=== PATIENT | female | born 1960 | race Caucasian/White ===

== ENCOUNTER → 2020-03-28 07:30 | Outpatient (CLI) | payer BC, SELFPAY ==
[2020-03-29 00:19] LABS: SARS-CoV-2 RNA PCR Negative
== END ==
PROVIDERS: PCP Family Medicine; Visit Provider Physician Assistant
DX: Z20.822 Contact with and (suspected) exposure to COVID-19 (principal); R09.81 Nasal congestion
CPT/HCPCS: C9803; U0003; U0005

== ENCOUNTER 2020-04-17 13:54 | Outpatient (CLI) | payer BC, SELFPAY ==
--- NOTE | ~2020-04-17 | CT_ITS ---
EXAMINATION: CT brain wo con EXAM DATE: 04/17/2020 14:28 INDICATION: R51.9 - Headache, unspecified . TECHNIQUE: Spiral CT of the head was performed without contrast. Axial, coronal and sagittal images were reviewed. The dose-length product (DLP) for this examination was 605.33 mGy-cm. The exposure w as tailored according to patient size, and iterative reconstruction (ASIR) was used as additional dos e reduction technique. Comparison is made to prior examination from 08/10/2006. FINDINGS: There is no acute intraparenchymal hemorrhage. No evidence of intraparenchymal brain mass lesion. No evidence of acute infarction. There is no mass effect or midline shift. The ventricles are normal in size. There are no extra-axial collections. There are no acute calvarial fractures. T he orbits are unremarkable. Soft tissue is unremarkable. The visualized sinuses and mastoid air valencia ls are well aerated. IMPRESSION: 1. Unremarkable head CT examination. Reviewed, dictated and finalized at location B. ASSISTANT
== END 2020-04-17 13:55 | disposition home or self-care (01) ==
PROVIDERS: PCP Family Medicine; Visit Provider Family Medicine
DX: H53.50 Unspecified color vision deficiencies (principal); R51.9 Headache, unspecified; I10 Essential (primary) hypertension; R42 Dizziness and giddiness
CPT/HCPCS: 70450

== ENCOUNTER 2020-05-27 09:46 | Outpatient (CLI) | payer BC, SELFPAY | END 2020-05-27 09:47 | disposition home or self-care (01) | PROVIDERS: PCP Family Medicine; Visit Provider Otolaryngology | DX: H91.93 Unspecified hearing loss, bilateral (principal); H93.13 Tinnitus, bilateral | CPT/HCPCS: 92557; 92567 ==

== ENCOUNTER → 2020-10-28 01:24 | Outpatient (CLI) | payer BC, SELFPAY ==
[2020-10-28 20:24] LABS: SARS-CoV-2 RNA PCR Negative
== END ==
PROVIDERS: PCP Family Medicine; Visit Provider Nurse Practitioner Family
DX: Z20.822 Contact with and (suspected) exposure to COVID-19 (principal); R68.89 Other general symptoms and signs
CPT/HCPCS: C9803; U0003; U0005

== ENCOUNTER → 2021-03-10 10:07 | Outpatient (CLI) | payer BC, SELFPAY ==
[2021-03-10 13:49] LABS: Influenza A QL RT-PCR Negative (Negative); Influenza B QL RT-PCR Negative (Negative); SARS-CoV-2 RNA PCR Negative
== END ==
PROVIDERS: PCP Family Medicine; Visit Provider Physician Assistant
DX: R05.9 Cough, unspecified (principal); R09.89 Other specified symptoms and signs involving the circulatory and respiratory systems; Z20.822 Contact with and (suspected) exposure to COVID-19
CPT/HCPCS: 87502; C9803; U0003; U0005

== ENCOUNTER 2023-06-15 07:25 | Emergency (ER) | payer BC, SELFPAY ==
[2023-06-15] VITALS (21 sets, daily range): BP systolic 132–174; BP diastolic 69–86; PULSE 63–77; RESP 9–18; TEMP 36.6; O2SAT 96–100
--- NOTE | ~2023-06-15 | CT_ITS ---
CT scan of the Neck Technique: 2.5 mm axial scans were obtained through the neck after intravenous administration of 75 c c Omnipaque 350. Coronal and sagittal reconstructions of the neck were obtained. Dose reduction techn ique was used on this scan by utilizing automated exposure control and iterative reconstruction techn ique. The dose-length product (DLP) was 343.43 mGy-cm. Clinical History: Pain and swelling Findings: There is no evidence of any significant cervical lymphadenopathy. Several small, nonenlarged jugulo- digastric and posterior cervical lymph nodes are noted bilaterally. Parapharyngeal spaces appear norm al bilaterally. The parotid and submandibular glands appear normal. The pharyngeal mucosal spaces appear normal. No soft tissue masses are seen in the neck. The thyroid gland appears normal. Images of the lung apices reveal no abnormalities. Impression: No significant abnormalities noted. Reviewed, dictated and finalized at [facility]. Impression: No significant abnormalities noted.
--- NOTE | ~2023-06-15 | XR_ITS ---
Clinical Indication: Chest pain PA and lateral views of the chest: Comparison: 08/25/2012 Findings: The lungs are clear, without evidence of focal consolidation or pleural effusion. Cardiome diastinal silhouette is within normal limits. Bones and soft tissues are unremarkable. Impression: Normal chest. Reviewed, dictated and finalized at location . Impression: Normal chest.
--- NOTE | 2023-06-15 07:46 | ECG_ITS ---
SEE SCANNED COPY FOR CONFIRMED REPORT MTDD
[2023-06-15] MEDS: ASPIRIN 81 MG CHEWABLE TABLET 324 MG PO (07:59)
[2023-06-15 08:07] LABS: Basophils Absolute Auto 0.1 K/mm3 (0.0-0.1); Basophils Percent Auto 0.6 % (0.2-1.2); Eosinophils Absolute Auto 0.1 K/mm3 (0-0.3); Hematocrit 44.6 % (37.0-47.0); Hemoglobin 14.6 g/dL (12.0-15.0); Immature Granulocyte Absolute 0.04 K/mm3 (0.00-0.031); Immature Granulocyte Percent A 0.3 % (0-0.5); Lymphocytes Absolute Auto 3.47 K/mm3 (0.9-3.2); Lymphocytes Percent Auto 28.6 % (18.3-44.2); Mean Corpuscular HGB Conc 32.7 g/dl (32-36); Mean Corpuscular Hemoglobin 30.2 pg (26-34); Mean Corpuscular Volume 92.1 fl (80-100); Mean Platelet Volume 10.9 fl (7.4-10.4); Monocytes Percent Auto 8.4 % (2.6-8.5); Neutrophils Absolute Auto 7.4 K/mm3 (1.3-6.7); Neutrophils Percent Auto 61.1 % (45.5-73.1); Platelet Count Result 300 k/mm3 (150-375); Red Blood Count 4.84 M/mm3 (4.2-5.4); Red Cell Distribution Width 15.4 % (11.5-14.5); White Blood Count 12.2 K/mm3 (4.5-10.0)
--- NOTE | 2023-06-15 08:09 | ED.CHESTPAIN ---
HPI - Chest Pain General Chief Complaint: Neck Pain/Injury Stated Complaint: neck pain Time Seen by Provider: 06/15/23 08:07 Source: patient Mode of arrival: ambulatory Limitations: no limitations History of Present Illness HPI narrative: Patient presents with complaint of chest pain radiating into her left neck and jaw. She states pain began yesterday upon awakening but had improved throughout the day by the evening. Symptoms however started again this morning. She denies any sore throat. No lower extremity edema. She describes the pain as a constriction 6/10 in severity. She does experience pain with inspiration. She is a smoker. History of hypertension hyperlipidemia for which she is on medications. She feels like she has a tightness in her neck but denies any shortness of breath/difficulty breathing. No cardiac or respiratory history and has never seen a party bus driver or had cardiac workup/stress testing. Denies family history. Denies a cough at present. She did have a cough approximately 1 week ago that resolved. Related Data Allergies Allergy/AdvReac Type Severity Reaction Status Date / Time No Known Allergies Allergy Verified 06/15/23 07:26 [facility] Past Medical History Medical History Chronic cholecystitis Family history of colon cancer HTN (hypertension) Hyperlipemia Surgical History Surgical History (Updated 03/06/23 @ 15:02 by Mario Alberto Mcintyre PA-C) History of bladder suspension procedure S/P laparoscopic cholecystectomy 12/30/22 Family History Family History Father Carcinoma of colon Malignant neoplasm of prostate Grandparent Carcinoma of colon Family history of pancreatic cancer Family history of heart disease in male family member before age 55 Social History Social History Social History: Smoking packs per day: 1 Smoking cigarettes per day: 20.0 Years smoked: 40 Smoking pack-years: 40.00 Smoking status: Current every day smoker Tobacco type: cigarettes Second hand tobacco smoke exposure: No Smoking end date: 01/21/20 Alcohol intake: current Drinks per week: 10 Substance use: never Substance use type: does not use Living arrangements: with family Occupation/Education: occupation Gender identity (if verbalized by the patient): Female Sexual Orientation (if Verbalized by the Patient): Straight or Heterosexual Exam Narrative: GENERAL: Well-appearing, well-nourished, and in no acute distress. HEAD: Normocephalic, atraumatic. EYES: Non injected, non icteric ENT: Nares clear, no rhinorrhea or epistaxis. Posterior oropharynx unremarkable. NECK: Supple. No fullness. CHEST: Clear to auscultation. No respiratory distress. Speaking in full sentences. HEART: Regular rate and rhythm. ABDOMEN: Soft, nondistended. EXTREMITIES: Normal range of motion. No edema. SKIN: Warm, dry, no rash. NEURO: No focal deficits. Alert and oriented x3. PSYCH: Normal mood and affect. Course Vital Signs Vital signs: Vital Signs Temperature 97.8 F 06/15/23 07:39 Pulse Rate 67 06/15/23 07:39 Respiratory Rate 12 06/15/23 07:39 Blood Pressure 174/86 H 06/15/23 07:39 Pulse Oximetry 100 06/15/23 07:39 Oxygen Delivery Room Air 06/15/23 07:39 Temperature 97.8 F 06/15/23 07:39 Pulse Rate 64 06/15/23 11:06 Respiratory Rate 10 L 06/15/23 11:06 Blood Pressure 132/84 06/15/23 11:06 Pulse Oximetry 98 06/15/23 11:06 Oxygen Delivery Room Air 06/15/23 07:39 MDM - Chest Pain MDM Narrative Medical decision making narrative: Patient presents initially complaining of neck pain. In discussion further, she states that it is chest pain that radiates into her left neck and jaw. Pain started yesterday and had improved but then recurred today. In the emergency
[2023-06-15 08:16] LABS: INR 0.9
[2023-06-15 08:17] LABS: Partial Thromboplastin Time 29.9 Seconds (22.3-36.8)
[2023-06-15 08:18] LABS: Alanine Aminotransferase 18 U/L (6-35); Albumin Level 4.5 g/dL (3.5-5.1); Alkaline Phosphatase 73 U/L (38-126); Anion Gap 5 mmol/L (4-12); Aspartate Amino Transferase 25 U/L (14-36); Bilirubin,Total 0.5 mg/dL (0.2-1.3); Blood Urea Nitrogen 14 mg/dL (7-17); Calcium 9.6 mg/dL (8.4-10.2); Carbon Dioxide 26 mmol/L (22-30); Chloride 105 mmol/L (98-107); Estimated CRCL calculation 65 ml/min; Estimated Glomerular Filt Rate > 60; Glucose 104 mg/dL (65-110); Lipase 155 U/L (23-300); Potassium 4.6 mmol/L (3.4-5.0); Sodium 136 mmol/L (137-145)
[2023-06-15 08:28] LABS: Troponin I < 0.012 ng/mL (0.000-0.034)
[2023-06-15] MEDS: BELLADONNA ALK/PHENOB ELIX 10 ML, MAG HYDROX/ALUMINUM HYD/SIMETH 30 ML, LIDOCAINE HCL 2... PO (08:31)
[2023-06-15] MEDS: ACETAMINOPHEN 500 MG TABLET 1000 MG PO (08:31)
[2023-06-15 08:32] LABS: D Dimer < 0.27 ug/mL (<0.48)
[2023-06-15 08:54] LABS: NT Pro B Type Natriuretic Pept 239 pg/mL (19.9-100)
--- NOTE | 2023-06-15 10:25 | ECG_ITS ---
SEE SCANNED COPY FOR CONFIRMED REPORT MTDD
[2023-06-15 11:14] LABS: Troponin I < 0.012 ng/mL (0.000-0.034)
== END 2023-06-15 11:35 | disposition home or self-care (01) ==
PROVIDERS: Emergency Provider Student in an Organized Health Care Education/Training Program; PCP Family Medicine
DX: R07.9 Chest pain, unspecified (principal); D72.829 Elevated white blood cell count, unspecified; I10 Essential (primary) hypertension; E78.5 Hyperlipidemia, unspecified; Z90.49 Acquired absence of other specified parts of digestive tract; Z87.891 Personal history of nicotine dependence; R94.31 Abnormal electrocardiogram [ECG] [EKG]
CPT/HCPCS: 36415; 70491; 71046; 80053; 83690; 83880; 84484; 85025; 85380; 85610; 85730; 93005; 99284; A9270; Q9967

== ENCOUNTER 2023-12-27 11:00 | Outpatient (CLI) | payer BC, SELFPAY ==
--- NOTE | ~2023-12-27 | CT_ITS ---
CT Scan of the Chest without Contrast: Clinical Indication: Lung congestion, nicotine dependence Technique: Contiguous sections were acquired throughout the chest without intravenous contrast. Dose reduction technique was used on this scan by utilizing automated exposure control and iterative recon struction technique. The dose-length product (DLP) was 62.10 mGy-cm. Findings: There is no evidence of any significant mediastinal, hilar or axillary lymphadenopathy. The mediastin al soft tissues appear normal. There is no evidence of pleural or pericardial effusion. The lungs are clear. No pulmonary nodules or infiltrates are noted. Images through the upper abdomen reveal no abnormalities. Impression: Lung RADS 1: Negative. 12 month follow-up screening CT advised. Reviewed, dictated and finalized at location . 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 12 month follow-up screening CT advised.
== END 2023-12-27 11:01 | disposition home or self-care (01) ==
PROVIDERS: PCP Family Medicine; Visit Provider Family Medicine
DX: Z12.2 Encounter for screening for malignant neoplasm of respiratory organs (principal); Z87.891 Personal history of nicotine dependence
CPT/HCPCS: 71271

== ENCOUNTER 2024-03-19 00:15 | Day surgery (SDC) | payer BC, SELFPAY ==
[2024-03-08 14:24] VITALS: BMI 22.1
--- OUTSIDE RECORDS SUMMARY | 2024-03-19 00:18 | XMS_ITS | Clinical Summary ---
Author Organization [facility] [employer] Address [address] [place] [address] Care Team Providers Care Edge Stripper Name Role Phone Jono Krishna MD Primary Care Provider [phone] Source Comments [facility] [employer],non-owned Affiliates and Associated Physician Practices is amultiple site organization consisting of ambulatory clinics and hospital sitesin [place], [place], [place] and [place]. This disclosure is being madepursuant to the Care Everywhere program and may not contain all information available regarding this patient. Last updated 17.[facility] Allergies No known active allergies Medications * Be aware that medications may not be up to date on this document. Alwaysverify current medications with the patient. Medication Sig Dispensed Refills Start Date End Date Status amitriptyline (ELAVIL) 25 MG tablet Take 25 mg by mouth at bedtime 05/30/2020 Active Probiotic Product (ACIDOPHILUS/GOAT MILK) CAPS Take 1 capsule by mouth once daily Active estradiol (ESTRACE) 1 MG tablet Take 1 mg by mouth once daily 06/11/2020 Active dicyclomine (BENTYL) 10 MG capsule Take 10 mg by mouth 4 times daily 06/05/2019 Active amLODIPine (NORVASC) 5 MG tablet Take 5 mg by mouth once daily 04/29/2020 Active Active Problems Problem Noted Date Diagnosed Date Carpal tunnel syndrome 09/14/2017 Numbness of right hand 08/10/2017 Hematuria 08/11/2016 Adenomatous colon polyp 03/17/2015 Ischemic colitis 03/17/2015 Renal cyst 12/22/2014 Irritable bowel syndrome with diarrhea 4 Immunizations Name Administration Dates Next Due INFLUENZA VACCINE, TRIV. (AF LURIA, FLUZONE TRIVALENT; 6MO+) (IIV3) 12/19/2014 INFLUENZA VACCINE 12/14/2018, 8,12/06/2016, 016,11/21/2013 TDAP (7yrs+) 10/29/2018 Social History Tobacco Use Types Packs/Day Years Used Date Smoking Tobacco: Every Day Cigarettes Smokeless Tobacco: Never Alcohol Use Standard Drinks/Week Comments Yes 0 (1 standard drink = 0.6 oz pur e alcohol) Sex and Gender Information Value Date Recorded Sex Assigned at Not on file Gender Identity Not on file Sexual Orientation Not on file Last Filed Vital Signs Vital Sign Reading Time Taken Comments Blood Pressure 149/74 06/18/2020 1:21 PM CDT Pulse 92 06/18/2020 1:21 PM CDT Temperature 36.7 ??C (98.1 ??F) 06/18/2020 1:21 PM CD T Respiratory Rate - - Oxygen Saturation - - Inhaled Oxygen Concentration - - Weight 59 kg (130 lb) 06/18/2020 1:21 PM CDT Height 157.5 cm (5' 2 ) 06/18/2020 1:21 PM CDT Body Mass Index 23.78 06/18/2020 1:21 PM CDT Plan of Treatment Health Maintenance Due Date Last Done Comments COLOGUARD (AGES 45-75) - COLON CA SCREENING 1959 COLON MONITORING 1959 COLONOSCOPY - COLON CA SCREENING 1959 CT COLONOGRAPHY - COLON CA SCREENING 1959 Colorectal Cancer Screening 1959 FIT - COLON CA SCREENING 1959 FLEX SIG - COLON CA SCREENING 1959 LIPID TESTING 1959 PAP SMEAR 1959 HIV SCREENING 12/06/1974 HEPATITIS C SCREENING 12/02/1977 PNEUMOCOCCAL VACCINE 50+ (1 of 2 - PCV) 12/06/1978 PNEUMOCOCCAL VACCINE (1 of 2 - PCV) 12/06/1978 ZOSTER VACCINE (1 of 2) 12/06/2009 MAMMOGRAM 02/23/2022 02/24/2020, 02/16/2017 COVID-19 VACCINE ( - season) 2023 INFLUENZA VACCINE (#1) 2023 9, 12/20/2017, 12/06/2016, Additional history exists DEPRESSION SCREENING 02/21/2024 DTAP/TDAP/TD VACCINES (2 - Td or Tdap) 10/29/2028 10/29/2018 Respiratory Syncytial Virus (RSV) Vaccine Pt: or over 60 yrs (1 - 1-dose 75+ series) 12/06/2034 HEPATITIS B VACCINE Aged Out No longe r eligible based on patient's age to complete this topic HIB VACCINE Aged Out No longer eligi ble based on patient's age to complete this topic HPV VACCINE Aged Out No longer eligi ble based on patient's age to complete this topic MENINGOCOCCAL (Group B) VACCINE Aged Out No longer eligible based on patient's age to complete this topic MENINGOCOCCAL VACCINE Aged Out No boom clemencia eligible based on patient's age to complete this topic Care Teams Edge Stripper Relationship Specialty Start Date End Date Jono Krishna MD [address] [place] [address] PCP - General 06/10/20
--- OUTSIDE RECORDS SUMMARY | 2024-03-19 00:18 | XMS_ITS | Clinical Summary ---
Author Organization [facility] Address [address] [place] [address] Phone Care Team Providers Care Film Casting Operator Name Role Phone Gloria Huffman APRN, AUTOMOTIVE ARTIST Unavailable [phone] Jono Krishna MD Primary Care Provider Donal Pan MD Unavailable Jennifer Ca APRN, AUTOMOTIVE ARTIST Unavailable Allergies No known active allergies Medications dicyclomine (BENTYL) 10 MG CapsuleIndicati ons:Irritable bowel syndrome with diarrhea,Adenom atous colon polyp,Diverticu losis of large intestine without hemorrhage Take 10 mg by mouth daily as needed. 5 5 Active Probiotic Product (PROBIOTIC DAILY PO)Indications: Ischemic colitis (HCC),Irritable bowel syndrome with diarrhea,Adenom atous colon polyp,Diverticu losis of large intestine without hemorrhage Take by mouth. Acti ve FIBER SELECT GUMMIES PO Take 1 Tablet by mouth daily. Active Lactobacillus Rhamnosus, GG, (CULTURELLE PO) Take 1 Tab by mouth daily. Active estradiol (ESTRACE) 1 MG Tablet Take 1 mg by mouth daily. 4 9 Active LOSARTAN POTASSIUM PO Take 75 mg by mouth every morning. 3 Active atorvastatin (LIPITOR) 40 MG Tablet daily. Active pantoprazole (PROTONIX) 40 MG Tablet Delayed ResponseIndicat ions:Gastroesop hageal reflux disease, unspecified whether esophagitis present Take 1 tablet by mouth once daily 30 Tablet 3 Active famotidine (PEPCID) 20 MG Tablet Take 20 mg by mouth daily. Active acetaminophen (TYLENOL) 325 MG Tablet Take 1 Tablet by mouth every 6 hours as needed for Fever (for temperature greater than 100.4 F.). Do not exceed 4000 mg of acetaminophen in 24 hour from all sources. 3 Active Additional Information Patient not taking.Reported on 01/10/2023 oxyCODONE (ROXICODONE) 5 MG TabletIndicatio ns:Sludge in gallbladder Take 1 Tablet by mouth every 4 hours as needed for Severe pain. 10 Tablet 3 Active Additional Information Patient not taking.Reported on 01/10/2023 Active Problems Problem Noted Date Diagnosed Date Sludge in gallbladder 12/30/2022 Adenomatous colon polyp 03/17/2015 Irritable bowel syndrome with diarrhea 6 Ischemic colitis 03/17/2015 Immunizations Immunization Administration Dates Next Due Influenza Vaccine greater than 3 yrs 12/19/2014 Family History Medical History Relation Name Comments Thyroid Disease Brother 1 No Known Problems Brother 2 No Known Problems Daughter Cancer Father esophagus Colon Cancer Father 62 Prostate Cancer Father Stomach Cancer Father Cancer Maternal Grandfather Colon Cancer Maternal Grandfather Heart Disease Maternal Grandfather No Known Problems Maternal Grandmother Hypertension Mother Breast Cancer Other 1 pat. cousin Cancer Other 1 pat. cousin Breast Cancer Other 2 pat. cousin Cancer Other 2 pat. cousin Breast Cancer Paternal Cousin Cancer Paternal Cousin Cancer Paternal Grandfather Prostate Cancer Paternal Grandfather Cancer Paternal Grandmother pancere atic Colon Cancer Paternal Grandmother 60's Leukemia/Lymphoma Paternal Grandmother Cancer Sister Leukemia/Lymphoma Sister Hodgkins L ymphoma Skin Cancer Sister No Known Problems Son Relation Name Status Comments Brother 1 Alive Brother 2 Alive Daughter Alive Father Maternal Grandfather Maternal Grandmother Mother Alive Other 1 pat. cousin Other 2 pat. cousin Paternal Cousin Alive Paternal Grandfather Paternal Grandmother Sister Alive Son Alive Social History Tobacco Use Types Packs/Day Years Used Date Smoking Tobacco: Every Day Cigarettes 1 50.1 Started: 1974 Smokeless Tobacco: Never Tobacco Cessation:Ready to Q uit: Not Asked; Counseling Given: Not Answered Alcohol Use Standard Drinks/Week Comments Yes 2 (1 standard drink = 0.6 oz pur e alcohol) Sexually Active Control Partners Comments Yes Male Comments No Sex and Gender Information Value Date Recorded Sex Assigned at Not on file Legal Sex Female 9:06 PM CDT Gender Identity Not on file Sexual Orientation Not on file 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 Not on file Not on file Not on file Last Filed Vital Signs Vital Sign Reading Time Taken Comments Blood Pressure 140/86 01/10/2023 9:25 AM ENGINE WIPER Pulse 71 01/10/2023 9:25 AM ENGINE WIPER Temperature 35.8 ??C (96.5 ??F) 01/10/2023 9:25 AM CS T Respiratory Rate 16 01/10/2023 9:25 AM ENGINE WIPER Oxygen Saturation 99% 01/10/2023 9:25 AM ENGINE WIPER Inhaled Oxygen Concentration - - Weight 55.3 kg (122 lb) 01/10/2023 9:25 AM ENGINE WIPER Height 157.5 cm (5' 2 ) 01/10/2023 9:25 AM ENGINE WIPER Body Mass Index 22.31 01/10/2023 9:25 AM ENGINE WIPER Plan of Treatment Health Maintenance Due Date Last Done Comments Hepatitis C Virus (HCV) Screening 1960 Cologuard 12/06/2009 Immunochemical Fecal Occult Blood 12/06/2009 Lung Cancer Screening 12/06/2009 Influenza Immunization (#1) 10/22/202311/21, 12/15/2021, 12/11/2020, Additional history exists SARS-COV-2 Immunization ( season) 2023 12/13/2022, 12/15/2021, 01/22/2021, Additional history exists Mammogram 05/09/2025 05/10/2023, 02/0 10/2022, 03/23/2021, Additional history exists Colonoscopy 07/10/2028 07/10/2018 Colorectal Cancer Screening 07/10/2028 07/10/2018 DTaP/Tdap/Td Immunization Discontinued 10/29/2018 TdaP Immunization Completed 10/29/2018 Zoster Immunization Completed 02/12/2020, 0 Pneumococcal Immunization (50+ years) Completed 02/26/2023 Pneumococcal Immunization Combined Discontinued 02/26/2023 Respiratory Syncytial Virus (RSV) Immunization (Adult) Completed 02/26/2023 Hepatitis B Immunization Aged Out No longer eligible based on patient's age to complete this topic Meningococcal Immunization (ACWY) Aged Out No longer eligible based on patient's age to complete this topic Rotavirus Immunization Aged Out No lo nger eligible based on patient's age to complete this topic Procedures Procedure Name Priority Date/Time Associated Diagnosis Comments NAOMY SCREENING BILATERAL DIGITAL W CAD W ANA Routine 05/10/2023 7:21 AM CDT Visit for screening mammogram from Last 3 Months or Most Recently Relevant to Health Maintenance Results * NAOMY SCREENING BILATERAL DIGITAL W CAD W ANA (05/10/2023 7:21 AM CDT) Anatomical Region Laterality Modality breast Bilateral Mammography 05/10/2023 7:46 AM CDT Narrative 05/10/2023 10:30 AM CDT - NAOMY SCREENING BILATERAL DIGITAL W CAD W ANA BILATERAL DIGITAL SCREENING MAMMOGRAM 3D/2D WITH CAD WITH MEDIOLATERAL OBLIQUE CRANIOCAUDAL: 05/10/2023 The study was acquired using digital technology and interpreted from soft copy. Current study was also evaluated with ICAD version 7.2. 2D digital mammographic views, as well as 3D digital tomosynthesis were performed in the CC and MLO projections. ?? CLINICAL: Routine screening. Patient has no complaints. No personal history of cancer. Three paternal cousins had breast cancer. ?? COMPARISONS: Comparison is made to exams dated: ??03/23/2021, 03/31/2022, and 02/24/2020 [facility]. ?? BREAST TISSUE:The tissue of both breasts is heterogeneously dense. This may lower the sensitivity of mammography. ?? FINDINGS: There are benign calcifications in both breasts. ?? No significant masses, calcifications, or other findings are seen in either breast. ?? There has been no significant interval change. IMPRESSION: BI-RAD 2 BENIGN There is no mammographic evidence of malignancy. A 1 year screening mammogram is recommended. ?? A letter will be sent to the patient with these results. The patient will be entered into a reminder system with a target due date of 1 year for her next screening exam. Electronically signed by: Bronson Lisa M.D. ? tuyet/sharmaine:05/10/2023 10:05:23 ?? Grinder Outside Diameter(s): Magali ?? RT Sabas(R)(M), [facility] letter sent: Normal Exam ?? Reading location: WHITE BI-RADS: 2 Benign Procedure Note Bronson Lisa MD - 05/10/2023 - NAOMY SCREENING BILATERAL DIGITAL W CAD W ANA BILATERAL DIGITAL SCREENING MAMMOGRAM 3D/2D WITH CAD WITH MEDIOLATERAL OBLIQUE CRANIOCAUDAL: 05/10/2023 The study was acquired using digital technology and interpreted from soft copy. Current study was also evaluated with LoSoD version 7.2. 2D digital mammographic views, as well as 3D digital tomosynthesis were performed in the CC and MLO projections. CLINICAL: Routine screening. Patient has no complaints. No personal history of cancer. Three paternal cousins had breast cancer. COMPARISONS: Comparison is made to exams dated: 03/23/2021, 03/31/2022, and 02/24/2020 [facility]. BREAST TISSUE:The tissue of both breasts is heterogeneously dense. This may lower the sensitivity of mammography. FINDINGS: There are benign calcifications in both breasts. No significant masses, calcifications, or other findings are seen in either breast. There has been no significant interval change. IMPRESSION: BI-RAD 2 BENIGN There is no mammographic evidence of malignancy. A 1 year screening mammogram is recommended. A letter will be sent to the patient with these results. The patient will be entered into a reminder system with a target due date of 1 year for her next screening exam. Electronically signed by: Bronson benz/sharmaine:05/10/2023 10:05:23 Grinder Outside Diameter(s): RT Adele(R)(M), [facility] letter sent: Normal Exam Reading location: WHITE BI-RADS: 2 Benign Jono Krishna MD IMG MAMMO ORDERABLES Fi nal Result from Last 3 Months or Most Recently Relevant to Health Maintenance Insurance [facility] Care Teams Film Casting Operator Relationship Specialty Start Date End Date Jono Krishna MD [address] [place] [address] PCP - General Family Medicine 02/24/20 Gloria Huffman APRN, AUTOMOTIVE ARTIST Nurse Practitioner Advanced Practice Nurse 09/17/15 Donal Pan MD [address] [address] Consulting Physician Colon and Rectal Surgery 12/08/22 Jennifer Ca APRN, AUTOMOTIVE ARTIST [address] [place] [address] Nurse Practitioner Advanced Practice Nurse 08/31/22
--- OUTSIDE RECORDS SUMMARY | 2024-03-19 00:18 | XMS_ITS | Data Portability ---
[facility] Organization [facility] Address [address] [place] [address] Care Team Providers Care Shut Off Worker Name Role Phone DONITA HOWARD Primary Care Provider [phone] Assessment Encounter Date Assessment Date Assessment LastModified by Organization Details LastModified Time 01/26/2018 01/26/2018 1. Counseled regarding prevention of STD's , condom use 2. Pelvic and mammogram order not needed. 3. Advised avoidance of tobacco, alcohol, and drugs . 4. Counseled regarding folic acid supplementation , calcium needs and prevention of osteoporosis . 5. BSE reviewed and recommended. 6. Follow up in one year or sooner if needed. [email or web address] Not available 01/26/2018 11:43:33 Plan of Treatment Reminders Order Date Submit Date Provider Last Modified By Organization Details Last Modified Time Details Appointments None recorded. Lab None recorded. Referral urogynecol ogist referral 2018 019 LO Not available 9 12:33:37 Procedures None recorded. Surgeries None recorded. Imaging MAMMO, screening, bilateral 2018 019 LO Os ([facility] Scheduling, [address] [place], [address], 0 16:42:17 Medication Orders estradiol 1 mg tablet 2017 018 [facility] [address] [place], [address], 8 11:43:54 estradiol 1 mg tablet 2018 019 [facility]FACE [facility] [address] [place], [address], 9 10:56:08 estradiol 1 mg tablet 2020 021 [facility] [address] [place], [address], 15:07:04 estradiol 1 mg tablet 2021 022 [facility] [address] [place], [address], 2 11:15:26 Patient TargetsNo targets recorded. Patient InstructionsNo instructions recorded. Reason for Referral Urogynecologist Referral for Cystocele without uterine prolapse Referring Physician: Jayda Whitehead, Air Drier, Encounter Date: 05/24/2018 Results Created Date Observation Date Name Description Value Unit Range Abnormal Flag Note LastModifiedBy Organization Detail LastModifiedTime 02/20/20 18 02/17/2018 MAMMO , scree omkar, bilat eral No observ ation record ed. [facility] (Radiology) [address] [place], [address], 02/22/2018 15:44:35 02/21/19 20 02/19/2019 MAMMO , scree omkar, bilat eral No observ ation record ed. [facility] ([facility]) Scheduling [address] [place], [address], 02/22/2019 17:15:32 02/23/19 21 02/24/2020 MAMMO , scree omkar, digit al, bilat eral No observ [facility]ion [facility] ed. [email or web address] [address] [place], [address], 02/25/2020 12:18:48 03/29/19 22 03/23/2021 MAMMO , scree omkar, digit al, bilat eral No observ ation record ed. BARCODE Not Available 2021 12:38:27 04/01/19 23 03/31/2022 MAMMO , marbellae omkar, digit al, bilat eral No observ ation record ed. [email or web address] Not Available 2022 09:46:28 Result Notes None recorded. Problems Name Problem SNOMED Code Status Onset Date Resolution Date Notes Provider Name and Address Organization Details Recorded Time Menopausal symptom 95579443 Active Minerva Lock, YUNIOR null, [place] - SIF 6 09:44:24 Problem Notes None recorded. Procedures Surgical History Date Name Laterality Status Provider Name and Address Organization Details Recorded Time 03/31/19 23 Most Recent Mammogram completed Emily Gallo RN [place] - [place] 04/01/2022 09:46:40 02/20/18 89 Hysterectomy completed Chacha Junior [place] - [place] 01/01/2015 10:07:08 Imaging Results Imaging Date Name Status LastModified by Organiz [facility] Details LastModified Time 02/17/2018 MAMMO, screening, bilateral completed ez [facility] (Radiology) [address] [place] [address], [address], 02/22/2018 15:44:35 02/19/2019 MAMMO, screening, bilateral completed TENAHA [facility] ([facility]) Scheduling [address] [place], [address], 02/22/2019 17:15:32 02/24/2020 MAMMO, screening, digital, bilateral completed [email or web address] [facility] (Radiology) [address] [place] [address], [address], 02/25/2020 12:18:48 03/23/2021 MAMMO, screening, digital, bilateral completed BARCODE Information not available 03/29/2021 12:38:27 03/31/2022 MAMMO, screening, digital, bilateral completed [email or web address] Information not available 04/01/2022 09:46:28 Procedure Notes None recorded. Medical Equipment None Reported. Allergies No known drug allergies Medications Name Sig Start Date Stop Date Status Note LastModified by Organization Details LastModified Time atorvastati n 20 mg tablet TAKE 1 TABLET BY MOUTH ONCE DAILY AT BEDTIME active Not Available Not Available No t Available metronidazo le 250 mg tablet active Not Available Not Available Not Available amlodipine 5 mg tablet 04/06 completed Not Available Not Available Not Available ciprofloxac in 500 mg tablet active Not Available Not Available Not Available omeprazole 40 mg capsule,del ayed release 04/06 completed Not Available Not Available Not Available amitriptyli ne 25 mg tablet 04/06 completed Not Available Not Available Not Available estradiol 1 mg tablet TAKE 1 TABLET BY MOUTH ONCE DAILY active Not Available Not Available No t Available losartan 25 mg tablet TAKE 1 TABLET BY MOUTH ONCE DAILY active Not Available Not Available No t Available methylpredn isolone 4 mg tablets in a dose pack 04/06 completed Not Available Not Available Not Available dicyclomine 10 mg capsule TAKE 1 CAPSULE BY MOUTH TWICE DAILY NEEDED FOR IBS active Not Available Not Available No t Available metaxalone 800 mg tablet 04/06 completed Not Available Not Available Not Available Premarin 0.625 mg tablet Take 1 tablet every day by oral route. 01/15 completed Not Available Not Available Not Available Fluvirin 5477-6154 (PF) 45 mcg (15 mcg x 3)/0.5 mL IM syringe 04/06 completed Not Available Not Available Not Available Afluria (PF) 45 mcg(15 mcg x 3)/0.5 mL intramuscul ar syringe 04/06 completed Not Available Not Available Not Available Shingrix (PF) 50 mcg/0.5 mL intramuscul ar suspension, kit PHARMACIS T ADMINISTE RED IMMUNIZAT ION ADMINISTE RED AT TIME OF DISPENSIN G 04/06 completed Not Available Not Available Not Available Fluzone Quad (PF) 60 mcg(15 mcgx4)/0.5 mL intramuscul ar syringe 04/06 completed Not Available Not Available Not Available Flublok Quad (PF) 180 mcg (45 mcg x 4)/0.5 mL IM syringe 04/06 completed Not Available Not Available Not Available Fluzone Quad (PF) 60 mcg (15 mcg x 4)/0.5 mL IM syringe PHARMACIS T ADMINISTE RED IMMUNIZAT ION ADMINISTE RED AT TIME OF DISPENSIN G 04/06 completed Not Available Not Available Not Available Vitals Date Recorded Body height Provider Name an d Address Organization Details Last Updated DateTime 01/26/2018 157.48 cm Lizeth Forde [facility] 01/26/2018 09:04:52 Date Recorded Body mass index (BMI) Body weight Provider Name and Address Organization Details Last Updated DateTime 01/26/2018 23.2 kg/m2 31857.23 anna Forde MA [facility] 01/26/2018 09:04:55 Date Recorded Body height Provider Name an d Address Organization Details Last Updated DateTime 05/24/2018 157.48 cm Lizeth Forde MA [facility] 05/24/2018 10:45:26 Date Recorded Body mass index (BMI) Body weight Provider Name and Address Organization Details Last Updated DateTime 05/24/2018 23.4 kg/m2 67467.82 anna Forde MA [facility] 05/24/2018 10:45:30 Date Recorded Body height Provider Name an d Address Organization Details Last Updated DateTime 01/15/2019 157.48 cm Lizeth Forde MA [facility] 01/15/2019 10:09:17 Date Recorded Body mass index (BMI) Body weight Provider Name and Address Organization Details Last Updated DateTime 01/15/2019 22.9 kg/m2 52853.33 anna Forde MA [facility] 01/15/2019 10:09:25 Date Recorded Body height Provider Name an d Address Organization Details Last Updated DateTime 03/03/2020 157.48 cm Casandra Joseph MA [facility] 021 14:50:28 Date Recorded Body mass index (BMI) Body weight Provider Name and Address Organization Details Last Updated DateTime 03/03/2020 22.9 kg/m2 29204.05 anna Joseph MA [facility] 03/03/2020 14:50:33 Date Recorded Body height Provider Name an d Address Organization Details Last Updated DateTime 04/06/2021 157.48 cm Delmy Courtney [facility] 2021 09:41:54 Date Recorded Body mass index (BMI) Body weight Provider Name and Address Organization Details Last Updated DateTime 04/06/2021 23.5 kg/m2 09466.22 g Delmy Rojas Sherwin [facility] 04/06/2021 09:42:02 Date Recorded Systolic blood pressure Diastolic blood pressure Provider Name and Address Organization Details Last Updated DateTime 01/26/2018 122 mm[Hg] 78 mm[Hg] Lizeth Forde MA [facility] 01/26/2018 09:05:03 Date Recorded Systolic blood pressure Diastolic blood pressure Provider Name and Address Organization Details Last Updated DateTime 05/24/2018 144 mm[Hg] 82 mm[Hg] Lizeth Forde MA [facility] 05/24/2018 10:45:40 Date Recorded Systolic blood pressure Diastolic blood pressure Provider Name and Address Organization Details Last Updated DateTime 01/15/2019 128 mm[Hg] 70 mm[Hg] Lizeth Forde MA [facility] 01/15/2019 10:09:31 Date Recorded Systolic blood pressure Diastolic blood pressure Provider Name and Address Organization Details Last Updated DateTime 04/06/2021 128 mm[Hg] 72 mm[Hg] Delmy Rojas Sherwin [facility] 04/06/2021 09:43:16 Social History Question Answer Notes LastModified by Organizat ion Details LastModified Time Tobacco Smoking Status Current Every Day [email or web address]2015 10:07:09 What Is Your Level Of Alcohol Consumption? Occasional [email or web address] Information not available 01/01/2015 Is Blood Transfusion Acceptable In An Emergency? Yes [email or web address] Information not available 01/01/2015 What Is Your Level Of Caffeine Consumption? Moderate [email or web address] Information not available 01/01/2015 In The 14 Days Before Symptom Onset, Have You Had Close Contact With A Laboratory-confi rmed COVID-19 While That Case Was Ill? No [email or web address] Information not available 04/06/2021 In The 14 Days Before Symptom Onset, Have You Had Close Contact With A Person Who Is Under Investigation For COVID-19 While That Person Was Ill? No [email or web address] Information not available 04/06/2021 Have You Been To An Area Known To Be High Risk For COVID-19? No [email or web address] Information not available 04/06/2021 Are You Currently Employed? Yes Self Employed [email or web address] Information not available 01/01/2015 What Type Of Diet Are You Following? REGULAR [email or web address] Information not available 01/01/2015 Which Illicit Or Recreational Drugs Have You Used? 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 With Others [email or web address] Information not available 01/01/2015 What Was The Date Of Your Most Recent Tobacco Screening? 04/06/2021 [email or web address] Information not available 04/06/2021 How Many Children Do You Have? 2 [email or web address] Information not available 01/01/2015 Performs Monthly Self-breast Exam? No [email or web address] Information not available 01/01/2015 Do You Use Protection During Sex? No Information not available 01/01/2015 What Is Your Relationship Status? [email or web address] Information not available 01/01/2015 Seat Belts Used Routinely Yes [email or web address] Information not available 01/01/2015 Are You Sexually Active? Yes [email or web address] Information not available 01/01/2015 Do You Have Smoke And Carbon Monoxide Detectors In Your Home? Yes Information not available 04/06/2021 At What Age Did You Start Smoking Tobacco? 14 [email or web address] Information not available 01/01/2015 How Much Tobacco Do You Smoke? 0.5 PPD Trying To Quit Smoking [email or web address] Information not available 04/06/2021 Do You Use Sunscreen Routinely? No Information not available 01/01/2015 How Many Years Have You Smoked Tobacco? 40 Information not available 01/01/2015 Do You Or Have You Ever Used Any Other Forms Of Tobacco Or Nicotine? No [email or web address] Information not available 04/06/2021 Sex: Female Functional Status Question Answer Note LastModified by Organizat ion Details LastModified Time What is your exercise level? Occasional [email or web address] Information not available 01/01/2015 Mental Status None recorded. Family History Relationship Description Onset Age of this Age Resolved Age Notes LastModified by Organization Details LastModified Time Father Malignant tumor of prostate [email or web address] Not available 01/2015 10:07:08 Father Malignant tumor of colon Not available 01/2015 10:07:08 Father Malignant neoplastic disease [email or web address] Not available 01/2015 10:07:08 Mother Hypertensive disorder [email or web address] Not available 01/2015 10:07:08 Paternal Grandmother Malignant tumor of colon [email or web address] Not available 01/2015 10:07:08 Paternal Grandmother Malignant tumor of pancreas [email or web address] Not available 01/2015 10:07:08 Paternal Grandmother Leukemia [email or web address] Not available 01/01/2015 10:07:08 Paternal Grandfather Malignant tumor of prostate [email or web address] Not available 01/2015 10:07:08 Maternal Grandfather Malignant tumor of colon [email or web address] Not available 01/2015 10:07:08 Maternal Grandfather Heart disease COD [email or web address] Not available 01/2015 10:07:08 Brother Hypertensive disorder [email or web address] Not available 01/2015 10:07:08 Sister Hodgkin's disease (clinical) [email or web address] Not available 10:07:08 Medical History Condition Response GI Problems Y Gynecological History Statement/Question Response Abnormal Pap N Sexually Active? Y STIs/STDs N Date of Last Pap Smear Sexual Problems? N Age at Menarche 11 Current Control Method Hysterectom y Most Recent Mammogram 03/31/2022 Age at First Child 19 LMP Obstetrics History GPAL:G 2 P 2 0 0 2 Type Value Full Term 2 Living 2 Total 2 Past Encounters Encounter ID Performer Location Encounter Start Date Encounter Closed Date Diagnosis/Indication Diagnosis SNOMED-CT Code Diagnosis ICD10 Code Diagnosis Note [id number] Clarice Kaur ([facility] [address]) [address] [place] [address] 01/01/2015 09:44:56 01/01/2015 11:54:11 Gynecologic examination 84722093 Z01.666 [id number] Jayda Whitehead [facility] Shi Kaur ([facility] [address]) [address] [place] [address] 01/07/2016 09:24:16 01/07/2016 14:29:26 Screening mammography 28765682 Z12.31 Gynecologi c examination 09834149 Z01.032 [id number] G[facility]DINO [facility] ([facility]) [address] [facility] [address] [place] [address] 01/17/2017 08:49:32 01/18/2017 09:05:54 Screening mammography 80971382 Z12.31 Menopausal syndrome 1237 28748 N95.9 Gynecologi c examination 82080067 Z01.346 [id number] GALDINO Kelsey 13 OB [address] [facility] [address] [place] [address] 01/26/2018 08:45:57 01/26/2018 15:57:23 Menopausal syndrome 988482898 N95.9 Gynecologi c examination 61257253 Z01.094 [id number] GALDINO Kelsey 13 OB [address] [facility] [address] [place] [address] 05/24/2018 10:38:31 05/25/2018 08:47:24 Cystocele without uterine prolapse 93774748 N81.10 Will do referral for urogyn. Pt verbalizes understand ing and will follow up pending that visit. [id number] GALDINO Kelsey 13 OB [address] [facility] [place] [address] 01/15/2019 09:58:36 01/15/2019 16:23:58 Screening mammography 93749390 Z12.31 Gynecologi c examination 40865938 Z01.419 1. Counseled regarding prevention of STD's , condom use 2. Pelvic done and mammogram order given 3. Advised avoidance of tobacco, alcohol, and drugs . 4. Counseled regarding folic acid supplement ation, calcium needs and prevention of osteoporos is . 5. BSE reviewed and recommende d. 6. Follow up in one year or sooner if needed. Cystocele 538847383 N81. 10 Is being followed by urogyn. Pt instructed to follow up with that office if problems arise. Pt verbalized understand ing. Menopausal syndrome 1237 37137 N95.9 Will continue with Estradiol. Pt verbalized understand ing of risk factors of hrt. [id number] GALDINO Kelsey 13 OB [address] [facility] [place] [address] 03/03/2020 14:49:43 03/04/2020 11:04:12 Postmenopausal state 87830390 Z78.0 1. Counseled regarding prevention of STD's , condom use and prevention . 2. Counseled regarding contracept araceli options, risk factors and side effects. 3. Advised avoidance of tobacco, alcohol, and drugs . 4. Counseled regarding folic acid supplement ation, calcium needs and prevention of osteoporos is . 5. BSE reviewed and recommende d. 6. Follow up in one year or sooner if needed. [id number] Jayda Whitehead, [facility] 14 OB [address] [facility] [address] [place] [address] 04/06/2021 09:24:32 04/07/2021 06:20:45 Menopausal syndrome 531312731 N95.9 Will continue with Estradiol. Pt verbalized understand ing of risk factors of hrt. Gynecologi c examination 90959687 Z01.419 1. Counseled regarding prevention of STD's , condom use 2. Pelvic done and mammogram order given 3. Advised avoidance of tobacco, alcohol, and drugs . 4. Counseled regarding folic acid supplement ation, calcium needs and prevention of osteoporos is . 5. BSE reviewed and recommende d. 6. Follow up in one year or sooner if needed. Health Concerns Section Related Observation LastModified by Organization Detai ls LastModified Time None Recorded Concern Status LastModified by Organization Details LastModified Time None Recorded Advance Directives Directive None Recorded Payers Encounter Date Sequence Insurance Name Policy Number Policy Aguayo Covered Member ID Aguayo Member ID Guarantor Name 01/26/2018 1 [place] [id number] Isidro Gabe [id number] Cassie Bernal 05/24/2018 1 [place] [id number] [facility] Gabe [id number] Cassie Bernal 01/15/2019 1 [place] [id number] [facility] Gabe [id number] Cassie Bernal 03/03/2020 1 [place] [id number] [facility] Gabe [id number] aCssie Bernal 04/06/2021 1 [place] [id number] Isidro Bernal [id number] Cassie Bernal Notes Date Note Type Note Provider Name and Address Organization Details Recorded Time 01/26/2018 text/html 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 Post-MenopausalRepor yazmin bypatient.Menopausal Symptoms:hot flashes Vaginal Bleeding:no history of post menopausal bleeding Urinary Symptoms:no hematuria; no incontinence; no nocturia; no urinary frequency Vulva:no genital lesion; no vulvar atrophy Vagina:normal vaginal discharge; no vaginal atrophy Breast:no breast lump; no nipple discharge; no breast pain Sexual Complaints:no sexual complaints Psychological Symptoms:no depression; no anxiety Preventive Measures:encourage regular mammograms starting age 40; encourage self breast examination; encourage regular exercise; mammogram performed within the past year GALDINO Kelsey Attn: Accounting[address] [place], [address], [facility] 01/26/2018 11:44:16 05/24/2018 text/html Pt states she andre d stomach flu last week that resulted in a large amount of pressure in vagina. States she looked with a mirror and something 'was hanging out . Pt denies excessive urination, vaginal discharge, odor or burning. No other complaints. GALDINO Kelsey Attn: [address] [place], [address], [facility] 05/24/2018 10:58:36 01/15/2019 text/html Annual GYNReport ed bypatient.Urinary symptoms:No hematuria; No incontinence Vulva:No genital lesion Vagina:Normal vaginal discharge Breast:No breast pain; No breast lump; No nipple discharge Current Contraception:hyster ectomy Sexual complaints:No sexual complaints; No pain during intercourse; Normal libido Menopausal Symptoms:No menopausal symptoms; Normal vaginal lubrication Psychological symptoms:No depression; No anxiety; No PMDD Preventive measures:Encourage self breast examination; Encourage regular exercise; Encourage no tobacco use; Encourage regular mammograms starting age 40; Needs to schedule mammogram 02/17/18 mammogram normalwas seen by urogyn for bladder prolapse June 2018, had bladder tacked in September 2018. states leaking has stopped but still feels occasional urgencyhx of hysterectomy GALDINO Kelsey Attn: Accounting[address] [place], [address], [facility] 01/15/2019 10:56:08 03/03/2020 text/html Annual GYNReport ed bypatient.History:no gynecologic complaints Urinary symptoms:No hematuria; No incontinence Vulva:No genital lesion Vagina:Normal vaginal discharge Breast:No breast pain; No breast lump; No nipple discharge Current Contraception:hyster ectomy Sexual complaints:No sexual complaints; No pain during intercourse; Normal libido Menopausal Symptoms:No menopausal symptoms; Normal vaginal lubrication Psychological symptoms:No depression; No anxiety; No PMDD Preventive measures:Encourage self breast examination; Encourage regular exercise; Encourage no tobacco use; Encourage regular mammograms starting age 40; Needs to schedule mammogram phone visit. due for annual, not having any problems. hx of hysterectomy. doing well. would like refill on estradiol. mammogram last week was wnl. GALDINO Kelsey Attn: Accounting[address] [place], [address], [facility] 03/03/2020 15:08:16 04/06/2021 text/html Annual GYNReport ed bypatient.History:no gynecologic complaints Urinary symptoms:No hematuria; No incontinence Vulva:No genital lesion Vagina:Normal vaginal discharge Breast:No breast pain; No breast lump; No nipple discharge Sexual complaints:No sexual complaints; No pain during intercourse; Normal libido Menopausal Symptoms:No menopausal symptoms; Normal vaginal lubrication Psychological symptoms:No depression; No anxiety; No PMDD Preventive measures:Encourage self breast examination; Encourage regular exercise; Encourage no tobacco use; Encourage regular mammograms starting age 40; Mammogram performed within the past year hx hysterectomyon estrodial daily, still has occasional hot flashes03/23/21 mammogram wnl GALDINO Kelsey Attn: Accounting[address] [place], [address], [facility] 04/06/2021 11:15:44 OBGyn Episode Ob Episode Information Episode Created Date Number of Fetuses Patient Bloodtype Patient rh Status Prepregnancy Weight lbs Domestic Partner Domestic Partner Phone Father Name Inventory Administrator Status 01/02/20 15 1 CLOSED Fetus Data First Name Last Name Admitted to NICU Weight (g) Sex Living Outcome Pediatric Complications Fetus ID Race Codes Race Delivery Type 3260.19 25 F Full Term [id number] Vaginal Rosalino Calculation Initial Rosalino Date Initial Exam Date Initial Exam Provider Initial Ultrasound Date Last Menstrual Period Date Ultra Sound Weeks Gestation 0 Eighteen To Twenty Week Rosalino Update Ultra Sound Date Fundal Height At Umbil Quickening Date Ultra Sound Latest Weeks Gestation Final Rosalino Confirmed By Final Rosalino Confirmed Date Final Rosalino Date Ultra Sound Latest Days Gestation 0 0 Menstrual History Last Menstrual Date Menses Monthly On Bcp Conception Prior Menses Frequency Hcg Plus Date Menarche Onset Age Delivery Information Delivery Date Delivery Type Labor Anesthesia Weeks Gestation Incision Type Labor Labor Length Hrs Delivered By Post Complications Tubal Sterilization Discharge Date Comments 8 None 40 Discharge Information Feeding Method Contraceptive Method Maternal HG B and HCT Levels Ob Episode Information Episode Created Date Number of Fetuses Patient Bloodtype Patient rh Status Prepregnancy Weight lbs Domestic Partner Domestic Partner Phone Father Name Inventory Administrator Status 01/02/20 15 1 CLOSED Fetus Data First Name Last Name Admitted to NICU Weight (g) Sex Living Outcome Pediatric Complications Fetus ID Race Codes Race Delivery Type 2267.96 M Full Term [id number] Vaginal Rosalion Calculation Initial Rosalino Date Initial Exam Date Initial Exam Provider Initial Ultrasound Date Last Menstrual Period Date Ultra Sound Weeks Gestation 0 Eighteen To Twenty Week Rosalino Update Ultra Sound Date Fundal Height At Umbil Quickening Date Ultra Sound Latest Weeks Gestation Final Rosalino Confirmed By Final Rosalino Confirmed Date Final Rosalino Date Ultra Sound Latest Days Gestation 0 0 Menstrual History Last Menstrual Date Menses Monthly On Bcp Conception Prior Menses Frequency Hcg Plus Date Menarche Onset Age Delivery Information Delivery Date Delivery Type Labor Anesthesia Weeks Gestation Incision Type Labor Labor Length Hrs Delivered By Post Complications Tubal Sterilization Discharge Date Comments 2 None 40 Discharge Information Feeding Method Contraceptive Method Maternal HG B and HCT Levels
--- OUTSIDE RECORDS SUMMARY | 2024-03-19 00:18 | XMS_ITS | Encounter Summary ---
Author Organization [facility] Address [address] [place] [address] Phone Care Team Providers Care Business Control Specialist Name Role Phone Gloria Huffman APRN, TECHNICAL SUPPORT ANALYST Unavailable [phone] Jono Krishna MD Primary Care Provider Donal Pan MD Unavailable Jennifer Ca APRN, TECHNICAL SUPPORT ANALYST Unavailable Reason for Visit * Reason Comments Medication Refill Encounter Details Date Type Department Care Team (Late st Contact Info) Description 10/04/2022 Refill [facility] - Gastroenterology - [place] [address] [place] [address] Jennifer Ca APRN, TECHNICAL SUPPORT ANALYST [address] [place], [place] [id number] Medication Refill Social History Tobacco Use Types Packs/Day Years Used Date Smoking Tobacco: Every Day Cigarettes 1 40 Smokeless Tobacco: Never Alcohol Use Standard Drinks/Week Comments Yes 2 (1 standard drink = 0.6 oz pur e alcohol) Socially 2-3 drinks a week Sexually Active Control Partners Comments Yes Male Comments No Sex and Gender Information Value Date Recorded Sex Assigned at Not on file Legal Sex Female 9:06 PM CDT Gender Identity Not on file Sexual Orientation Not on file 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 documented in this encounter Plan of Treatment Not on file documented as of this encounter Visit Diagnoses Diagnosis Gastroesophageal reflux disease, unspecified whether esophagitis present documented in this encounter Care Teams Business Control Specialist Relationship Specialty Start Date End Date Jono Krishna MD [address] [place] [address] PCP - General Family Medicine 02/24/20 Gloria Huffman APRN, TECHNICAL SUPPORT ANALYST Nurse Practitioner Advanced Practice Nurse 09/17/15 Donal Pan MD [address] [address] Consulting Physician Colon and Rectal Surgery 12/08/22 Jennifer Ca APRN, TECHNICAL SUPPORT ANALYST [address] [place] [address] Nurse Practitioner Advanced Practice Nurse 08/31/22 documented as of this encounter
--- OUTSIDE RECORDS SUMMARY | 2024-03-19 00:20 | XMS_ITS | Patient Health Summary ---
Author Organization [facility] Address [address] [place] [address] Care Team Providers Care University President Name Role Phone Jono Krishna MD Primary Care Provider [phone] Note from [facility],non-owned Affiliates and Associated Physician Practices is amultiple site organization consisting of ambulatory clinics and hospital sitesin [place], [place], [place] and [place]. This disclosure is being madepursuant to the Care Everywhere program and may not contain all information available regarding this patient. Last updated 17.[facility] Allergies No known active allergies Medications * Be aware that medications may not be up to date on this document. Alwaysverify current medications with the patient. * amitriptyline (ELAVIL) 25 MG tablet(Started 05/30/2020) Take 25 mg by mouth at bedtime * Probiotic Product (ACIDOPHILUS/GOAT MILK) CAPS Take 1 capsule by mouth once daily * estradiol (ESTRACE) 1 MG tablet(Started 06/11/2020) Take 1 mg by mouth once daily * dicyclomine (BENTYL) 10 MG capsule(Started 06/05/2019) Take 10 mg by mouth 4 times daily * amLODIPine (NORVASC) 5 MG tablet(Started 04/29/2020) Take 5 mg by mouth once daily Active Problems Problem Noted Date Diagnosed Date Carpal tunnel syndrome 09/14/2017 Numbness of right hand 08/10/2017 Hematuria 08/11/2016 Adenomatous colon polyp 03/17/2015 Ischemic colitis 03/17/2015 Renal cyst 12/22/2014 Irritable bowel syndrome with diarrhea 4 Immunizations * INFLUENZA VACCINE, TRIV. (AFLURIA, FLUZONE TRIVALENT; 6MO+) (IIV3)(Given 12/19/2014) * INFLUENZA VACCINE(Given 12/14/2018, 12/20/2017, 12/06/2016, 12/04/2015, 11/21/2013) * TDAP (7yrs+)(Given 10/29/2018) Social History Tobacco Use Types Packs/Day Years [...] Mass Index 23.78 06/18/2020 1:21 PM CDT Care Teams University President Relationship Specialty Start Date End Date Jono Krishna MD [address] [place] [address] PCP - General 06/10/20
--- OUTSIDE RECORDS SUMMARY | 2024-03-19 00:20 | XMS_ITS | Clinical Summary ---
Author Organization [facility] Address [address] [place] [address]. [place] [address] [place] [address] Care Team Providers Care Engine Manager Name Role Phone Pepe Duldey MD Primary Care Provider [phone] Allergies No known active allergies Medications estradiol 1 MG tablet Take 1 mg by mouth daily. 06/04/2018 Active Inulin (FIBER CHOICE FRUITY BITES OR) Take 2 tablets by mouth daily. Active probiotic capsule Take 1 capsule by mouth daily with breakfast. Active Psyllium (METAMUCIL FIBER OR) Take 1 Scoop by mouth daily. Active DICYCLOMINE 10 MG capsuleIndicati ons:IBS (irritable bowel syndrome) TAKE 2 CAPSULES BY MOUTH 4 TIMES DAILY 240 capsule 06/05/2019 Active Active Problems Problem Noted Date Diagnosed Date Carpal tunnel syndrome 09/14/2017 Numbness of right hand 08/10/2017 Hematuria 08/11/2016 Ischemic colitis ([facility]) 03/17/2015 Adenomatous colon polyp 03/17/2015 Renal cyst 12/22/2014 Irritable bowel syndrome with diarrhea 4 Immunizations Name Administration Dates Next Due Influenza (Generic) 12/06/2016, 6,12/19/2014, 014 Influenza Adult (Generic) 12/14/2018,12/20/2017 Tdap (Historical Only-select from magnify glass) 10/29/2018 Family History Medical History Relation Comments Cancer Father stomach/esophage al cancer Colon Cancer Father Prostate Cancer Father Heart Disease Maternal Grandfather Hypertension Mother Cancer Sister non-hodgkins lym phoma Relation Status Comments Father Maternal Grandfather Mother Sister Social History Tobacco Use Types Packs/Day Years Used Date Smoking Tobacco: Some Days Cigarettes Smokeless Tobacco: Never Alcohol Use Standard Drinks/Week Comments Yes 0 (1 standard drink = 0.6 oz pur e alcohol) AUDIT-C Answer Date Recorded Frequency of Alcohol Consumption 2-3 times a wee k 10/29/2018 Average Number of Drinks 3 or 4 019 Frequency of Binge Drinking Never 10/2018 PHQ-2 Answer Date Recorded PHQ-2 Score 0 01/26/2019 Comments No Sex and Gender Information Value Date Recorded Sex Assigned at Female 10/29/2018 10:00 AM CDT Legal Sex Female 5:52 PM CDT Gender Identity Female 10/29/2018 10:00 AM CDT Sexual Orientation Straight 10/29/2018 10 :00 AM CDT Last Filed Vital Signs Vital Sign Reading Time Taken Comments Blood Pressure 152/70 10/29/2018 10:39 AM CDT Pulse 70 10/29/2018 9:50 AM CDT Temperature - - Respiratory Rate 16 10/29/2018 9:50 AM CDT Oxygen Saturation 98% 10/29/2018 9:50 AM CDT Inhaled Oxygen Concentration - - Weight 57.5 kg (126 lb 12.8 oz) 10/29/2018 9:50 AM CDT Height 157.5 cm (5' 2 ) 10/29/2018 9:50 AM CDT Body Mass Index 23.19 10/29/2018 9:50 AM CDT Plan of Treatment Health Maintenance Due Date Last Done Comments Colorectal Cancer Screening Colonoscopy (10 Years) 1959 Annual Physical 12/06/1962 Pneumococcal Vaccine: Pediatrics (0 to 5 Years) and At-Risk Patients (6 to 64 Years) (1 of 2 - PCV) 12/06/1965 Hepatitis C 12/06/1977 Zoster Vaccines (1 of 2) 12/06/2009 COVID-19 Vaccine ( - 2023- season) 2023 Influenza Adult (#1) 2023 12/14/2018, 12/20/2017, 12/06/2016, Additional history exists Mammogram Screening 04/01/2024 04/01/2022, 0 DTaP, Tdap and Td Vaccines (2 - Td or Tdap) 10/29/2028 10/29/2018 RSV Immunization or 60+ Years (1 - 1-dose 75+ series) 12/06/2034 Meningococcal B Vaccine Aged Out No l onger eligible based on patient's age to complete this topic Meningococcal Vaccine Aged Out No boom clemencia eligible based on patient's age to complete this topic RSV Immunizations Under 20 Months Aged Out No longer eligible based on patient's age to complete this topic Procedures Procedure Name Priority Date/Time Associated Diagnosis Comments MAMMOGRAM GENERIC (SCAN ORDER) Routine 04/01/2022 from Last 3 Months or Most Recently Relevant to Health Maintenance Results * MAMMOGRAM (04/01/2022) Anatomical Region Laterality Modality Other [facility] Scanned SCANNING Final Resu lt from Last 3 Months or Most Recently Relevant to Health Maintenance Insurance [facility] Care Teams Engine Manager Relationship Specialty Start Date End Date Pepe Dudley MD [address] [place] [address] PCP - General 08/11/16
--- OUTSIDE RECORDS SUMMARY | 2024-03-19 00:20 | XMS_ITS | Referral Summary ---
Author Organization [facility] Address [address] [place] [address] Care Team Providers Care Wreath Maker Name Role Phone Jono Krishna MD Primary Care Provider [phone] Source Comments [facility],non-owned Affiliates and Associated Physician Practices is amultiple site organization consisting of ambulatory clinics and hospital sitesin [place], [place], [place] and [place]. This disclosure is being madepursuant to the Care Everywhere program and may not contain all information available regarding this patient. Last updated 17.[facility] Allergies No known active allergies Medications * [...] 06/18/2020 1:21 PM CDT Plan of Treatment Not on file Care Teams Wreath Maker Relationship Specialty Start Date End Date Jono Krishna MD [address] [place] [address] [facility] - General 06/10/20
[2024-03-19 06:26] VITALS: BP 146/63; PULSE 72; RESP 16; TEMP 36.1; O2SAT 99; BMI 22.4
--- NOTE | 2024-03-19 06:31 | P.PNAN_ITS ---
Anes - Initial Pre Proc Eval Procedure: Operation Date: 03/19/24 07:30 Proposed Procedures p Screening Colonoscopy - Harry Dacosta MD Date/Time: 03/19/24 06:31 Surgeon: Harry Dacosta MD Pre Op Diagnosis: family hx malignant neoplasm digestive organs Patient Data Age: 63 Gender: F Height: 1.57 m Weight: 55.5 kg Last Vital Signs Temp 97 F L 03/19/24 06:26 Pulse 72 03/19/24 06:26 Resp 16 03/19/24 06:26 BP 146/63 H 03/19/24 06:26 Pulse Ox 99 03/19/24 06:26 O2 Del Method Room Air 03/19/24 06:26 Allergies Allergy/AdvReac Type Severity Reaction Status Date / Time No Known Allergies Allergy Verified 03/19/24 06:25 Home Medications ?Medication ?Instructions ?Recorded ?Confirmed ?Type ibuprofen 600 mg tablet 600 mg PO TID PRN pain #20 tabs 06/15/23 03/08/24 Rx estradiol 1 mg tablet 1 mg PO DAILY #90 tabs 09/21/23 03/19/24 Rx losartan 100 mg tablet 100 mg PO DAILY #90 tabs 12/12/23 03/19/24 Rx trazodone 50 mg tablet 50 mg PO QHS PRN insomnia #30 tabs 01/29/24 03/08/24 Rx atorvastatin 40 mg tablet 40 mg PO QHS #90 tabs 02/22/24 03/19/24 Rx dicyclomine 10 mg capsule See Rx Instructions .Route 02/22/24 03/08/24 Rx .COMPLEX #180 caps cultural 40 mg BYMOUTH DAILY 03/08/24 03/19/24 History inulin 2 gram chewable tablet 4 g PO DAILY 03/08/24 03/19/24 History (Fiber Gummies) Patient hx anesthesia problems: none Family hx anesthesia problems: none Results Review: All pre-operative results and documents have been reviewed as part of the pre- operative evaluation. [facility] Past Medical History Medical History Chronic insomnia Chronic cholecystitis Hyperlipemia HTN (hypertension) Family history of colon cancer Surgical History Surgical History S/P laparoscopic cholecystectomy 12/30/22 History of bladder suspension procedure Family History Family History Father Carcinoma of colon Malignant neoplasm of prostate Grandparent Carcinoma of colon Family history of pancreatic cancer Family history of heart disease in male family member before age 55 Social History Social History Social History: Smoking packs per day: 1 Smoking cigarettes per day: 20.0 Years smoked: 40 Smoking pack-years: 40.00 Smoking status: Current every day smoker Tobacco type: cigarettes and e-cigarettes/vaping Second hand tobacco smoke exposure: No Smoking end date: 01/21/20 Alcohol intake: current Drinks per week: 12 Substance use: never Substance use type: does not use Do You Feel Safe in your Home?: Yes Lack of Transportation: No Lack of Food: Never True Current Housing: I Have Housing Concerned About Future Housing: No Difficulty Paying Gas/Electric Bills: No Difficulty Paying for Meds: No Currently Unemployed: No Education: High School Diploma/GED Difficulty w/ Childcare or Family Care: No Living arrangements: with family Occupation/Education: occupation Gender identity (if verbalized by the patient): Female Sexual Orientation (if Verbalized by the Patient): Straight or Heterosexual Spiritual care concerns: No Anes - Eval Final PreProcedure Day of Procedure 03/19/24 06:31 Patient weight: normal Heart: regular rate and rhythm Lungs: normal air movement Airway: Mallampati scale class II Neurological: alert and oriented Last oral intake: >/= 8 hours ASA classification: III Emergent: no Anesthetic plan: proceed Anesthesia type and monitoring: general GIVS and standard monitoring Results Review: All pre-operative results and documents have been reviewed as part of the pre- operative evaluation. HTN, hyperlipidemia, smoker, 1 ppd, AMINTA but unable to use CPAP. Informed Consent: The patient's anesthetic plan and its attendant risks and benefits were discussed with the patient/family/POA. Questions were solicited and answers provided to the satisfaction of the patient/family/POA.
[2024-03-19] MEDS: LACTATED RINGERS 1,000 ML 150 ML IV CONT (06:36)
--- NOTE | 2024-03-19 07:28 | PM.IMHP ---
H&P: HPI History of Present Illness Date/Time: 03/19/24 07:28 Chief Complaint: Family history of colon cancer Narrative: This patient has family history of colorectal cancer. her father had when he was 70, and she has 2 grand parents who had colon cancer. The patient had colon polyps and colonoscopy in the past. Review of Systems Review of Systems: All systems reviewed & are unremarkable except as noted in HPI and below PMFSH Past Medical History Medical History Chronic insomnia Chronic cholecystitis Hyperlipemia HTN (hypertension) Family history of colon cancer Surgical History Surgical History S/P laparoscopic cholecystectomy 12/30/22 History of bladder suspension procedure Family History Family History Father Carcinoma of colon Malignant neoplasm of prostate Grandparent Carcinoma of colon Family history of pancreatic cancer Family history of heart disease in male family member before age 55 Social History Social History Social History: Smoking packs per day: 1 Smoking cigarettes per day: 20.0 Years smoked: 40 Smoking pack-years: 40.00 Smoking status: Current every day smoker Tobacco type: cigarettes and e-cigarettes/vaping Second hand tobacco smoke exposure: No Smoking end date: 01/21/20 Alcohol intake: current Drinks per week: 12 Substance use: never Substance use type: does not use Do You Feel Safe in your Home?: Yes Lack of Transportation: No Lack of Food: Never True Current Housing: I Have Housing Concerned About Future Housing: No Difficulty Paying Gas/Electric Bills: No Difficulty Paying for Meds: No Currently Unemployed: No Education: High School Diploma/GED Difficulty w/ Childcare or Family Care: No Living arrangements: with family Occupation/Education: occupation Gender identity (if verbalized by the patient): Female Sexual Orientation (if Verbalized by the Patient): Straight or Heterosexual Spiritual care concerns: No Meds Home Medications and Allergies Home Medications ?Medication ?Instructions ?Recorded ?Confirmed ?Type ibuprofen 600 mg tablet 600 mg PO TID PRN pain #20 tabs 06/15/23 03/08/24 Rx estradiol 1 mg tablet 1 mg PO DAILY #90 tabs 09/21/23 03/19/24 Rx losartan 100 mg tablet 100 mg PO DAILY #90 tabs 12/12/23 03/19/24 Rx trazodone 50 mg tablet 50 mg PO QHS PRN insomnia #30 tabs 01/29/24 03/08/24 Rx atorvastatin 40 mg tablet 40 mg PO QHS #90 tabs 02/22/24 03/19/24 Rx dicyclomine 10 mg capsule See Rx Instructions .Route 02/22/24 03/08/24 Rx .COMPLEX #180 caps cultural 40 mg BYMOUTH DAILY 03/08/24 03/19/24 History inulin 2 gram chewable tablet 4 g PO DAILY 03/08/24 03/19/24 History (Fiber Gummies) Allergies Allergy/AdvReac Type Severity Reaction Status Date / Time No Known Allergies Allergy Verified 03/19/24 06:25 Vital Signs Vital Signs - 24 hr 03/19/24 06:26 Temperature 97 F L Pulse Rate 72 Respiratory Rate 16 Blood Pressure 146/63 H Pulse Oximetry 99 Oxygen Delivery Room Air Exam Const: General: cooperative and healthy appearing Resp: Effort & Inspection: normal respiratory effort and able to speak in complete sentences Auscultation: clear to auscultation bilaterally Cardio: Rate: regular rate Rhythm: regular rhythm GI: Inspection: normal to inspection GI Palp: No No hepatosplenomegaly present Auscultation: normal bowel sounds Rectal Exam: deferred Skin: General skin exam: normal color Psych: Appearance: grossly normal Mental Status: mental status grossly normal Assessment and Plan Assessment and plan (1) Family history of colon cancer: Code(s): Z80.0 - Family history of malignant neoplasm of digestive organs Status: Acute Assessment and Plan: The patient is deemed a good candidate for the procedure. Consent signed. Will proceed.
[2024-03-19] MEDS: SIMETHICONE ORAL SUSPENSION 20 MG/0.3 ML 30 ML BOTTLE 0.6 ML IRRIGATION (07:41)
[2024-03-19 07:55] VITALS: BP 138/71; PULSE 101; RESP 19; O2SAT 100
[2024-03-19 08:05] VITALS: BP 136/73; PULSE 91; RESP 17; O2SAT 100
[2024-03-19 08:15] VITALS: BP 141/70; PULSE 88; RESP 16; O2SAT 100
== END 2024-03-19 08:16 | disposition home or self-care (01) ==
PROVIDERS: PCP Family Medicine; Referring Provider Family Medicine; Visit Provider Internal Medicine Gastroenterology
PROC: 0DJD8ZZ Inspection of Lower Intestinal Tract, Via Natural or Artificial Opening Endoscopic (ICD-10-PCS; CPT 45378; principal; 2024-03-19 07:30)
DX: Z12.11 Encounter for screening for malignant neoplasm of colon (principal); K57.30 Diverticulosis of large intestine without perforation or abscess without bleeding; Z80.0 Family history of malignant neoplasm of digestive organs; F17.290 Nicotine dependence, other tobacco product, uncomplicated; F12.90 Cannabis use, unspecified, uncomplicated
CPT/HCPCS: 45378; J0461; J1596; J2704; J7120

== ENCOUNTER 2024-08-15 10:01 | Outpatient (CLI) | payer BC, SELFPAY ==
[2024-08-15 13:22] LABS: Alanine Aminotransferase 21 U/L (6-35); Alkaline Phosphatase 56 U/L (38-126); Anion Gap 6 mmol/L (4-12); Aspartate Amino Transferase 53 U/L (14-36); Bilirubin,Total 0.3 mg/dL (0.2-1.3); Blood Urea Nitrogen 15 mg/dL (7-17); Calcium 9.6 mg/dL (8.4-10.2); Carbon Dioxide 29 mmol/L (22-30); Chloride 102 mmol/L (98-107); Estimated Glomerular Filt Rate > 60; Glucose 108 mg/dL (65-110); Potassium 4.3 mmol/L (3.4-5.0); Sodium 137 mmol/L (137-145); Total Protein 7.1 g/dL (6.3-8.2)
== END 2024-08-15 10:02 | disposition home or self-care (01) ==
LOC: ANHGOSHLAB 10:02
PROVIDERS: PCP Family Medicine; Visit Provider Family Medicine
DX: I10 Essential (primary) hypertension (principal)
CPT/HCPCS: 36415; 80053

== ENCOUNTER 2024-10-25 08:45 | Outpatient (CLI) | payer BC, SELFPAY ==
--- NOTE | ~2024-10-25 | US_ITS ---
US arterial ankle brachial ind INDICATION: Peripheral vascular disease TECHNIQUE: Segmental pressures and plethysmographic and Doppler waveforms of the brachial and lower extremity arteries were obtained. COMPARISON: None. FINDINGS: Right and left brachial artery pressures of 162 mm Hg and 154 mm Hg, respectively, are concordant (normal difference <= 30 mmHg). The right ankle-brachial index (CAROLINE) is 0.88 (normal >= 0.9-1.0). The right great toe-brachial index (TBI) is 0.57 (normal >= 0.60). The left CAROLINE is 0.83. The left TBI is 0.62. IMPRESSION: 1. Mildly decreased ankle brachial indices consistent with peripheral arterial disease. Reviewed, dictated and finalized at location O.
--- OUTSIDE RECORDS SUMMARY | 2024-10-25 08:49 | XMS_ITS | Clinical Summary ---
Author Organization [facility] Address [address] [place] [address] Care Team Providers Care Wine Consultant Name Role Phone Jono Krishna MD Primary Care Provider [phone] Source Comments [facility],non-owned Affiliates and Associated Physician Practices is amultiple site organization consisting of ambulatory clinics and hospital sitesin [place], [place], [place] and [place]. This disclosure is being madepursuant to the Care Everywhere program and may not contain all information available regarding this patient. Last updated 17.[facility] Allergies No known active allergies Medications * Be aware that medications may not be up to date on this document. Alwaysverify current medications with the patient. amitriptyline (ELAVIL) 25 MG tablet Take 25 mg by mouth at bedtime 05/30/2020 Active Probiotic Product (ACIDOPHILUS/GO AT MILK) CAPS Take 1 capsule by mouth [...] Irritable bowel syndrome with diarrhea 4 Immunizations Immunization Administration Dates Next Due INFLUENZA VACCINE, TRIV. (AF LURIA, FLUZONE TRIVALENT; 6MO+) (IIV3) 12/19/2014 INFLUENZA VACCINE 12/14/2018, 8,12/06/2016,2015,11/21/2013 TDAP (7yrs+) 10/29/2018 Social History Tobacco Use Types Packs/Day Years Used Date Smoking Tobacco: Every Day Cigarettes Smokeless Tobacco: Never Alcohol Use Standard Drinks/Week Comments Yes 0 (1 standard drink = 0.6 oz pur e alcohol) Comments Unknown Sex and Gender Information Value Date Recorded Sex Assigned at Not on file Legal Sex Female 11:53 AM CDT Gender Identity Not on file Sexual Orientation Not on file Last Filed Vital Signs Vital Sign Reading Time Taken Comments Blood Pressure 149/74 06/18/2020 1:21 PM CDT Pulse 92 06/18/2020 1:21 PM CDT Temperature 36.7 C (98.1 F) 06/18/2020 1:21 PM CDT Respiratory Rate - - Oxygen Saturation - - Inhaled Oxygen Concentration - - Weight 59 kg (130 lb) 06/18/2020 1:21 PM CDT Height 157.5 cm (5' 2) 06/18/2020 1:21 PM CDT Body Mass Index [...] COLON CA SCREENING 1959 LIPID TESTING 1960 HIV SCREENING 12/06/1974 HEPATITIS C SCREENING 12/02/1977 PNEUMOCOCCAL VACCINE 50+ (1 of 2 - PCV) 12/06/1978 PAP SMEAR 12/06/1980 ZOSTER VACCINE (1 of 2) 12/06/2009 MAMMOGRAM 02/23/2022 02/24/2020, 02/16/2017 COVID-19 VACCINE (1 - season) 2023 DEPRESSION SCREENING 02/21/2024 INFLUENZA VACCINE (#1) 2024 9, 12/20/2017, 12/06/2016, Additional history exists DTAP/TDAP/TD VACCINES (2 - Td or Tdap) [...] complete this topic MENINGOCOCCAL (Group B) VACCINE SHARED DECISION-MAKING Aged Out No longer eligible based on patient's age to complete this topic MENINGOCOCCAL GROUPS A/C/Y/W VACCINE Aged Out No longer eligible based on patient's age to complete this topic Insurance ANTHEM ANTHEM Care Teams Wine Consultant Relationship Specialty Start Date End Date Jono Krishna MD [address] [place] [address] PCP - General 06/10/20
--- OUTSIDE RECORDS SUMMARY | 2024-10-25 08:49 | XMS_ITS | Encounter Summary ---
Author Organization [facility] Address [address] [place] [address] Phone Care Team Providers Care Corporate Fitness Program Coordinator Name Role Phone Gloria Huffman APRN, FUNCTIONAL SUPPORT ANALYST Unavailable [phone] Jono Krishna MD Primary Care Provider Donal Pan MD Unavailable Jennifer Ca APRN, FUNCTIONAL SUPPORT ANALYST Unavailable Reason for Visit * Reason Comments Medication Refill Encounter Details Date Type Department Care Team (Late st Contact Info) Description 10/04/2022 Refill [facility] - Gastroenterology - [place] [address] [place] [address] Jennifer Ca APRN, FUNCTIONAL SUPPORT ANALYST [address] [place] [address] Medication Refill Social History Tobacco Use Types [...] 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 Not on file Not [...] present documented in this encounter Care Teams Corporate Fitness Program Coordinator Relationship Specialty Start Date End Date Jono Krishna MD [address] [place], [place] [id number] PCP - General Family Medicine 02/24/20 Gloria Huffman APRN, FUNCTIONAL SUPPORT ANALYST Nurse Practitioner Advanced Practice Nurse 09/17/15 Donal Pan MD [address] [address] Consulting Physician Colon and Rectal Surgery 12/08/22 Jennifer Ca APRN, FUNCTIONAL SUPPORT ANALYST [address] [place] [address] Nurse Practitioner Advanced Practice Nurse 08/31/22 documented as of this encounter
--- OUTSIDE RECORDS SUMMARY | 2024-10-25 08:49 | XMS_ITS | Clinical Summary ---
Author Organization 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 Not on file Not on file Last Filed Vital Signs Vital Sign Reading Time Taken Comments Blood Pressure 140/86 01/10/2023 9:25 AM EVIDENCE SPECIALIST Pulse 71 01/10/2023 9:25 AM EVIDENCE SPECIALIST Temperature 35.8 C (96.5 F) 01/10/2023 9:25 AM EVIDENCE SPECIALIST Respiratory Rate 16 01/10/2023 9:25 AM EVIDENCE SPECIALIST Oxygen Saturation 99% 01/10/2023 9:25 AM EVIDENCE SPECIALIST Inhaled Oxygen Concentration - - Weight 55.3 kg (122 lb) 01/10/2023 9:25 AM EVIDENCE SPECIALIST Height 157.5 cm (5' 2) 01/10/2023 9:25 AM EVIDENCE SPECIALIST Body Mass Index 22.31 01/10/2023 9:25 AM EVIDENCE SPECIALIST Plan of Treatment Health Maintenance Due Date Last Done Comments Hepatitis C Virus (HCV) Screening 1960 Cologuard 12/06/2004 Immunochemical Fecal Occult Blood 12/06/2004 Influenza Immunization (#1) 10/21/202411/21, 12/15/2021, 12/11/2020, Additional history exists SARS-COV-2 Immunization ( season) 2024 12/13/2022, 12/15/2021, 01/22/2021, Additional history exists Mammogram 05/14/2025 05/14/2024, 04/21, 03/31/2022, Additional history exists Colonoscopy 07/10/2028 07/10/2018 Colorectal Cancer Screening 07/10/2028 DTaP/Tdap/Td Immunization Discontinued 10/29/2018 TdaP Immunization Completed 10/29/2018 Zoster Immunization Completed 02/12/2020, 0 Pneumococcal Immunization (50+ years) Completed 02/26/2023 Pneumococcal Immunization Combined Discontinued 02/26/2023 Respiratory Syncytial Virus (RSV) Immunization (Adult) Completed 02/26/2023 Hepatitis B Immunization Aged Out No longer eligible based on patient's age to complete this topic Human Papillomavirus (HPV) Immunization Aged Out No longer eligible based on patient's age to complete this topic Meningococcal Immunization (ACWY) Aged Out No longer eligible based on patient's age to complete this topic Rotavirus Immunization Aged Out No lo nger eligible based on patient's age to complete this topic Procedures Procedure Name Priority Date/Time Associated Diagnosis Comments NAOMY SCREENING BILATERAL DIGITAL W CAD W ANA Routine 05/14/2024 7:57 AM CDT Breast cancer screening by mammogram from Last 3 Months or Most Recently Relevant to Health Maintenance Results * NAOMY SCREENING BILATERAL DIGITAL W CAD W ANA (05/14/2024 7:57 AM CDT) Anatomical Region Laterality Modality breast Bilateral Mammography 05/14/2024 7:55 AM CDT Narrative 05/15/2024 10:17 AM CDT - NAOMY SCREENING BILATERAL DIGITAL W CAD W ANA BILATERAL DIGITAL SCREENING MAMMOGRAM 3D/2D WITH CAD WITH MEDIOLATERAL MEDIOLATERAL OBLIQUE CRANIOCAUDAL: 05/14/2024 The study was acquired using digital technology and interpreted from soft copy. Current study was also evaluated with ICAD version 7.2. 2D digital mammographic views, as well as 3D digital tomosynthesis were performed in the CC and MLO projections. CLINICAL: Routine screening. Patient has no complaints. Limited inframammary folds due to habitus. No personal history of cancer. Three paternal cousins had breast cancer. COMPARISONS: Comparison is made to exams dated: 05/10/2023, 03/31/2022, and 03/23/2021 [facility]. BREAST TISSUE:The breasts are heterogeneously dense, which may obscure small masses. FINDINGS: There are benign calcifications in both breasts. No significant masses, calcifications, or other findings are seen in either breast. There has been no significant interval change. IMPRESSION: BENIGN There is no mammographic evidence of malignancy. A 1 year screening mammogram is recommended. A letter will be sent to the patient with these results. The patient will be entered into a reminder system with a target due date of 1 year for her next screening exam. Electronically signed by: Bronson benz/sharmaine:05/14/2024 22:33:39 Customs Broker(s): RT Nguyen(R)(M), [facility] letter sent: Normal Exam Reading location: [facility] Mammogram BI-RADS: Category 2: Benign Procedure Note Bronson Lisa MD - 05/15/2024 - NAOMY SCREENING BILATERAL DIGITAL W CAD W ANA BILATERAL DIGITAL SCREENING MAMMOGRAM 3D/2D WITH CAD WITH MEDIOLATERAL MEDIOLATERAL OBLIQUE CRANIOCAUDAL: 05/14/2024 The study was acquired using digital technology and interpreted from soft copy. Current study was also evaluated with ICAD version 7.2. 2D digital mammographic views, as well as 3D digital tomosynthesis were performed in the CC and MLO projections. CLINICAL: Routine screening. Patient has no complaints. Limited inframammary folds due to habitus. No personal history of cancer. Three paternal cousins had breast cancer. COMPARISONS: Comparison is made to exams dated: 05/10/2023, 03/31/2022, and 03/23/2021 [facility]. BREAST TISSUE:The breasts are heterogeneously dense, which may obscure small masses. FINDINGS: There are benign calcifications in both breasts. No significant masses, calcifications, or other findings are seen in either breast. There has been no significant interval change. IMPRESSION: BENIGN There is no mammographic evidence of malignancy. A 1 year screening mammogram is recommended. A letter will be sent to the patient with these results. The patient will be entered into a reminder system with a target due date of 1 year for her next screening exam. Electronically signed by: Bronson benz/sharmaine:05/14/2024 22:33:39 Customs Broker(s): RT Nguyen(R)(M), [facility] letter sent: Normal Exam Reading location: [place] Mammogram BI-RADS: Category 2: Benign Jono Krishna MD IMG MAMMO ORDERABLES Fi nal Result from Last 3 Months or Most Recently Relevant to Health Maintenance Insurance [facility] Care Teams Crude Unit Operator Relationship Specialty Start Date End Date Jono Krishna MD [address] [place] [address] PCP - General Family Medicine 02/24/20 Gloria Huffman APRN, GREEN BUILDING ENERGY ENGINEER Nurse Practitioner Advanced Practice Nurse 09/17/15 Donal Pan MD [address] [address] Consulting Physician Colon and Rectal Surgery 12/08/22 Jennifer Ca APRN, GREEN BUILDING ENERGY ENGINEER [address] [place] [address] Nurse Practitioner Advanced Practice Nurse 08/31/22
== END 2024-10-25 08:46 | disposition home or self-care (01) ==
PROVIDERS: PCP Family Medicine; Visit Provider Student in an Organized Health Care Education/Training Program
DX: I73.9 Peripheral vascular disease, unspecified (principal)
CPT/HCPCS: 93922

== ENCOUNTER 2024-12-19 08:09 | Outpatient (CLI) | payer OTHER, SELFPAY ==
--- OUTSIDE RECORDS SUMMARY | 2024-12-19 08:14 | XMS_ITS | Encounter Summary ---
Author Organization [facility] Address [address] [place] [address] Phone Care Team Providers Care Light Out Examiner Name Role Phone Gloria Huffman APRN, CONTINUOUS CHURN BUTTERMAKER Unavailable [phone] Jono Krishna MD Primary Care Provider Donal Pan MD Unavailable Jennifer Ca APRN, CONTINUOUS CHURN BUTTERMAKER Unavailable Reason for Visit * Reason Comments Medication Refill Encounter Details Date Type Department Care Team (Late st Contact Info) Description 10/04/2022 Refill [facility] - Gastroenterology [facility] [address] [place] [address] Jennifer Ca APRN, CONTINUOUS CHURN BUTTERMAKER [address] [place] [address] Medication Refill Social History Tobacco Use Types [...] 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
--- OUTSIDE RECORDS SUMMARY | 2024-12-19 08:14 | XMS_ITS | Clinical Summary ---
Author Organization [facility] Address [facility] [place] [address] Care Team Providers Care Financial Aids Officer Name Role Phone Pepe Dudley MD Primary Care Provider [phone] Allergies No known active allergies Medications estradiol [...] right hand 08/10/2017 Hematuria 08/11/2016 Ischemic colitis 03/17/2015 Adenomatous colon polyp 03/17/2015 Renal cyst 12/22/2014 Irritable bowel syndrome with diarrhea 4 Immunizations Immunization Administration Dates Next Due Influenza (Generic) 12/06/2016, 6,12/19/2014,2013 Influenza Adult (Generic) 12/14/2018,12/20/2017 Tdap (Historical Only-select [...] 9:50 AM CDT Height 157.5 cm (5' 2) 10/29/2018 9:50 AM CDT Body Mass Index 23.19 10/29/2018 9:50 AM CDT Plan of Treatment Health Maintenance Due Date Last Done Comments Colorectal Cancer Screening Colonoscopy (10 Years) 1960 Hepatitis C 12/06/1977 Pneumococcal Vaccine: 50+ Years (1 of 2 - PCV) 12/06/1978 Zoster Vaccines (1 of 2) 12/06/2009 Mammogram Screening 04/01/2024 04/01/2022, 0 COVID-19 Vaccine ( - 2024- season) 2024 Influenza Adult (#1) 2024 12/14/2018, 12/20/2017, 12/06/2016, Additional history exists Dexa Scan (General) 12/06/2024 DTaP, Tdap and Td Vaccines (2 - Td or Tdap) 10/29/2028 10/29/2018 RSV Immunization or 60+ Years (1 - 1-dose 75+ series) 12/06/2034 Hepatitis A Vaccines Aged Out No long er eligible based on patient's age to complete this topic Meningococcal B Vaccine Aged Out No l [...] Most Recently Relevant to Health Maintenance Insurance [facility] Care Teams Financial Aids Officer Relationship Specialty Start Date End Date Pepe Dudley MD [address] [place] [address] PCP - General 08/11/16
--- OUTSIDE RECORDS SUMMARY | 2024-12-19 08:14 | XMS_ITS | Clinical Summary ---
Author Organization [facility] Address [address] [place] [address] Phone Care Team Providers Care Certified Alcohol And Drug Counselor Name Role Phone Gloria Huffman APRN, AIRCRAFT STRUCTURE MECHANIC Unavailable [phone] Jono Krishna MD Primary Care Provider Donal Pan MD Unavailable Jennifer Ca APRN, AIRCRAFT STRUCTURE MECHANIC Unavailable Allergies No known active allergies Medications dicyclomine (BENTYL) 10 MG CapsuleIndicati ons:Irritable bowel syndrome with diarrhea,Adenom atous colon polyp,Diverticu losis of large intestine without hemorrhage Take 10 mg by mouth daily as needed. 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 Not on file Last Filed Vital Signs Vital Sign Reading Time Taken Comments Blood Pressure 140/86 01/10/2023 9:25 AM LAUNDRY SUPERVISOR Pulse 71 01/10/2023 9:25 AM LAUNDRY SUPERVISOR Temperature 35.8 C (96.5 F) 01/10/2023 9:25 AM LAUNDRY SUPERVISOR Respiratory Rate 16 01/10/2023 9:25 AM LAUNDRY SUPERVISOR Oxygen Saturation 99% 01/10/2023 9:25 AM LAUNDRY SUPERVISOR Inhaled Oxygen Concentration - - Weight 55.3 kg (122 lb) 01/10/2023 9:25 AM LAUNDRY SUPERVISOR Height 157.5 cm (5' 2) 01/10/2023 9:25 AM LAUNDRY SUPERVISOR Body Mass Index 22.31 01/10/2023 9:25 AM LAUNDRY SUPERVISOR Plan of Treatment Health Maintenance Due Date [...] exams dated: 05/10/2023, 03/31/2022, and 03/23/2021 [facility]. BREAST TISSUE:The breasts are [...] exam. Electronically signed by: Bronson benz/sharmaine:05/14/2024 22:33:39 Short Story Writer(s): RT Nguyen(R)(M), [facility] letter sent: Normal Exam Reading location: WHITE [...] to exams dated: 05/10/2023, 03/31/2022, and 03/23/2021 [facility]. BREAST TISSUE:The breasts are heterogeneously dense, which [...] exam. Electronically signed by: Bronson benz/sharmaine:05/14/2024 22:33:39 Short Story Writer(s): RT Nguyen(R)(M), [facility] letter sent: Normal Exam Reading location: [place] Mammogram BI-RADS: Category 2: Benign Jono Krishna MD IMG MAMMO ORDERABLES Fi nal Result from Last 3 Months or Most Recently [place]vant [place] [address] [facility] Care Teams Certified Alcohol And Drug Counselor Relationship Specialty Start Date End Date Jono Krishna MD [address] [place] [address] PCP - General Family Medicine 02/24/20 Gloria Huffman APRN, AIRCRAFT STRUCTURE MECHANIC Nurse Practitioner Advanced Practice Nurse 09/17/15 Donal Pan MD [address] [address] Consulting Physician Colon and Rectal Surgery 12/08/22 Jennifer Ca APRN, AIRCRAFT STRUCTURE MECHANIC [address] [place] [address] Nurse Practitioner Advanced Practice Nurse 08/31/22
--- OUTSIDE RECORDS SUMMARY | 2024-12-19 08:14 | XMS_ITS | Clinical Summary ---
Author Organization [facility] Address [address] [place] [address] Care Team Providers Care Department Assistant Name Role Phone Jono Krishna MD Primary Care Provider [phone] Source Comments [facility],non-owned Affiliates and Associated Physician Practices is amultiple site organization consisting of ambulatory clinics and hospital sitesin [place], [place], [place] and [place]. This disclosure is being madepursuant to the Care Everywhere program and may not contain all information available regarding this patient. Last updated 17.[facility] Allergies No known active allergies Medications * [...] Health Maintenance Due Date Last Done Comments BONE DENSITY TESTING 1960 COLOGUARD (AGES 45-75) - COLON CA SCREENING [...] of 2) 12/06/2009 MAMMOGRAM 02/23/2022 02/24/2020, 02/16/2017 DEPRESSION SCREENING 02/21/2024 COVID-19 VACCINE ( season) 2024 INFLUENZA VACCINE (#1) 2024 9, 12/20/2017, 12/06/2016, [...] to complete [place] [phone] Care Teams Department Assistant Relationship Specialty Start Date End Date Jono Krishna MD [address] [place] [address] PCP - General 06/10/20
[2024-12-19 19:02] LABS: Hematocrit 40.3 % (37.0-47.0); Hemoglobin 12.8 g/dL (12.0-15.0); Immature Granulocyte Percent A 0.2 % (0-0.5); Lymphocytes Absolute Auto 2.48 K/mm3 (0.9-3.2); Mean Corpuscular HGB Conc 31.8 g/dl (32-36); Mean Corpuscular Hemoglobin 30.7 pg (26-34); Mean Corpuscular Volume 96.6 fl (80-100); Nucleated Red Blood Cells Absolute Auto 0.000 K/mm3 (0.0-0.012); Nucleated Red Blood Cells Perc 0.0 % (0.0-0.2); Platelet Count Result 293 k/mm3 (150-375); Red Blood Count 4.17 M/mm3 (4.2-5.4); White Blood Count 9.4 K/mm3 (4.5-10.0)
[2024-12-19 19:13] LABS: Add Urine Microscopic? NO; Appearance Urine Clear (Clear); Glucose Urine UA Negative (Negative); Leukocyte Esterase Ur Negative LEU/UL (Negative); Nitrate Urine Negative (Negative); Specific Grav Ur 1.017 (1.001-1.035)
[2024-12-19 19:24] LABS: Alanine Aminotransferase 16 U/L (6-35); Albumin Level 4.1 g/dL (3.5-5.1); Alkaline Phosphatase 61 U/L (38-126); Anion Gap 7 mmol/L (4-12); Aspartate Amino Transferase 50 U/L (14-36); Bilirubin,Total 0.4 mg/dL (0.2-1.3); Blood Urea Nitrogen 17 mg/dL (7-17); Calcium 9.1 mg/dL (8.4-10.2); Carbon Dioxide 28 mmol/L (22-30); Chloride 101 mmol/L (98-107); Cholesterol 162 mg/dL (0-200); Estimated Glomerular Filt Rate > 60; Glucose 78 mg/dL (65-110); HDL Direct 84 mg/dL; Potassium 4.4 mmol/L (3.4-5.0); Sodium 136 mmol/L (137-145); Total Protein 7.2 g/dL (6.3-8.2); Triglycerides 88 mg/dL (<150)
[2024-12-19 19:57] LABS: Thyroid Stimulating Hormone 2.470 uIU/mL (0.465-4.680)
== END 2024-12-19 08:10 | disposition home or self-care (01) ==
PROVIDERS: PCP Family Medicine; Visit Provider Student in an Organized Health Care Education/Training Program
DX: E78.5 Hyperlipidemia, unspecified (principal); I10 Essential (primary) hypertension; R31.9 Hematuria, unspecified; Z13.29 Encounter for screening for other suspected endocrine disorder
CPT/HCPCS: 36415; 80053; 80061; 81003; 84443; 85025